=== PATIENT | male | born 1945 | race Caucasian/White ===

== ENCOUNTER 2022-07-17 12:33 | Day surgery (SDC) | payer OTHER ==
[2022-07-17] VITALS (8 sets, daily range): BP systolic 110–156; BP diastolic 68–89
[~2022-07-17] VITALS: Ht 172.7 cm; Wt 56.5 kg
[2022-07-17] MEDS ORDERED: diphenhydrAMINE 25mg capsule PO PRN (12:55)
[2022-07-17] MEDS ORDERED: normal saline 1,000 ML IV SCH (12:55)
[2022-07-17] MEDS ORDERED: LORazepam 0.5 MG tablet PO PRN (12:55)
[2022-07-17] MEDS ORDERED: GABA-530 PO (13:25)
[2022-07-17] MEDS ORDERED: LEVO112T5 PO (13:25)
[2022-07-17] MEDS ORDERED: IBUP-1984 PO (13:25)
[2022-07-17] MEDS ORDERED: ESZO2TAB31 PO (13:25)
[2022-07-17] MEDS ORDERED: CLOB15CR4 TOP (13:25)
[2022-07-17] MEDS ORDERED: ACET-2971 PO (13:25)
[2022-07-17] MEDS ORDERED: SIMV-42 PO (13:25)
[2022-07-17 14:11] LABS: BASOPHILS % (AUTO) 0.7 % (0-1); EOSINOPHILS # (AUTO) 0.1 X10'3 (0-0.9); EOSINOPHILS % (AUTO) 1.7 % (0-6); HEMATOCRIT 46.2 % (42.0-52.0); HEMOGLOBIN 15.5 g/dl (14.0-17.9); LYMPHOCYTES # (AUTO) 1.8 X10'3 (1.1-4.8); LYMPHOCYTES % (AUTO) 26.5 % (21-51); MEAN CORPUSCULAR HGB CONC 33.4 g/dL (33.0-36.5); MEAN CORPUSCULAR VOLUME 95.8 FL (78-98); MONOCYTES # (AUTO) 0.5 X10'3 (0-0.9); MONOCYTES % (AUTO) 7.5 % (2-12); NEUTROPHILS # (AUTO) 4.4 X10'3 (1.8-7.7); NEUTROPHILS % (AUTO) 63.6 % (42-75); PLATELET COUNT 225 X10'3 (140-440); RED BLOOD COUNT 4.83 X10'6 (4.70-6.10)
[2022-07-17 14:22] LABS: ALBUMIN 3.6 G/DL (3.4-5.0); ANION GAP 7 (8-16); APTT 32 SECONDS (22-32); BLOOD UREA NITROGEN 20 MG/DL (7-18); BUN/CREATININE RATIO 26.3 (5.4-32.0); CALCIUM 8.5 MG/DL (8.5-10.1); CHLORIDE 106 MMOL/L (99-107); CREATININE 0.76 MG/DL (0.60-1.10); GLUCOSE 82 MG/DL (70-104); POTASSIUM 3.7 MMOL/L (3.5-5.1); SODIUM 139 MMOL/L (135-145); TOTAL CARBON DIOXIDE 25.9 MMOL/L (24-32); eGFR > 90 ML/MIN
[2022-07-17] MEDS ORDERED: nitroGLYCERIN-Tridil 50MG/D5W 250 ML IV ONE (15:30)
[2022-07-17] MEDS ORDERED: heparin 1,000unit/ml 10ml vial 10 ML ONE (15:31)
[2022-07-17] MEDS ORDERED: verapamil 2.5 mg/ml inj IV ONE (15:31)
[2022-07-17] MEDS ORDERED: iohexol 350MG/ML 100ml bottle IV ONE (15:31)
[2022-07-17] MEDS ORDERED: fentaNYL/PF 50MCG/1 ML 2ML syringe ONE (15:31)
[2022-07-17] MEDS ORDERED: midazolam 1 mg/ML 2ml injection ONE (15:31)
[2022-07-17] MEDS ORDERED: LIDOcaine 1% (10mg/ml) 2ml vial ONE (15:31)
[2022-07-17] MEDS ORDERED: HYDROcodone/acetaminophen 5mg/325mg tablet PO PRN (16:50)
[2022-07-17] MEDS ORDERED: HYDROcodone/acetaminophen 10/325mg tab PO PRN (16:50)
[2022-07-17] MEDS ORDERED: pneumococcal 23-VAL P-sac vacc 25 mcg/0.5ml vial IMVAC ONE (18:30)
== END 2022-07-17 18:50 | disposition home or self-care (01) ==
LOC: SSTAY O 12:33
PROVIDERS: ATTEND Student in an Organized Health Care Education/Training Program
DX: R94.39 Abnormal result of other cardiovascular function study (principal); R07.89 Other chest pain; E78.5 Hyperlipidemia, unspecified; E03.9 Hypothyroidism, unspecified; F17.210 Nicotine dependence, cigarettes, uncomplicated; J43.2 Centrilobular emphysema; M48.02 Spinal stenosis, cervical region; Z79.899 Other long term (current) drug therapy; Z23 Encounter for immunization
CPT/HCPCS: 36415; 80048; 85025; 85610; 85730; 90732; 93005; 93458; 99152; C1769; C1894; G0009; J1644; J2250; J3010; J3490; J7030; Q0163; Q9967; 99153; A6258; A6449